=== PATIENT | male | born 1960 | race Caucasian/White ===

== ENCOUNTER 2019-10-23 08:37 | Day surgery (SDC) | payer OTHER ==
[~2019-10-23] VITALS: Ht 182.9 cm; Wt 99.0 kg
[~2019-10-23 08:37] MED LIST: ASPI81EC PO; CYCL10 PO; HYDR1TAB94 PO; LISI5 PO; Lisinopril-Hct1 EAC4 PO; METF500 PO; METF500C PO; ROSU5 PO
--- NOTE | 2019-10-23 11:14 | NUR ---
10/23/19 1114 Afua Wise UPON ARRIVAL TO STEPDOWN PATIENT HAD ABD PAIN 4/10 HE DESCRIBED CRAMPY. PATIENT ABLE TO SIT UP WITHOUT HELP. DRINKS JUICE AND STATES HIS PAIN IS DECREASING. ABDOMEN IS SOFT TO TOUCH AND HE DOES NOT COMPLAIN OF INCREASED PAIN WITH PALPATION. DR AGUSTIN ADVISED AND HE ALSO EXAMINED ABDOMEN. GAVE OK TO RELEASE PATIENT TO HOME. AT TIME OF DISCHARGE PATIENT STATED HIS ABDOMEN WAS MUCH BETTER AND RATED PAIN 1-2/10
== END 2019-10-23 11:00 | disposition home or self-care (01) ==
LOC: ORSCSDS 08:37
PROVIDERS: Surgery
PROC: 0DBP8ZX Excision of Rectum, Via Natural or Artificial Opening Endoscopic, Diagnostic (ICD-10-PCS; principal; 2019-10-23 10:00)
DX: Z12.11 Encounter for screening for malignant neoplasm of colon (principal); K62.1 Rectal polyp; I10 Essential (primary) hypertension; E78.5 Hyperlipidemia, unspecified; E11.9 Type 2 diabetes mellitus without complications; Z79.84 Long term (current) use of oral hypoglycemic drugs; Z79.899 Other long term (current) drug therapy
CPT/HCPCS: 82947; 88305; J2704; J7040; J7120